=== PATIENT | female | born 1980 | race Hispanic/Latino ===

== ENCOUNTER 2018-08-23 19:39 | Emergency (ER) | payer SELFPAY ==
[~2018-08-23] VITALS: Ht 162.6 cm; Wt 94.3 kg
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
[2018-08-23] MEDS ORDERED: FAMOTIDINE 20 MG/2 ML VIAL IV NR (20:19)
[2018-08-23] MEDS ORDERED: ONDANSETRON HCL INJ 2MG/ML 2ML 2 MG/ML VIAL IV STA (20:19)
[2018-08-23] MEDS ORDERED: CEFTRIAXONE SOD 1 GM/NS 50 ML 50 ML IV NR (21:15)
--- NOTE | 2018-08-23 21:33 | Diagnostic Imaging Report ---
CT Abdomen And Pelvis with Intravenous Contrast INDICATION: Abdominal pain, nausea, vomiting, suprapubic pain ^[id number] ^[id number]; history of tubal ligation, appendectomy, cholecystectomy TECHNIQUE: Thin collimation axial images obtained from the diaphragm to the level of the pubic symphysis following the uneventful administration of 100 cc of low osmolar, nonionic intravenous contrast. Dose reduction techniques used: Automated exposure control, adjustment of the mAs and/or kVp according to patient size, standardized low-dose protocol, and/or iterative reconstruction technique. RADIATION DOSE: Total DLP: 814.3 mGy*cm Estimated effective dose: (DLP x 0.015 x size factor) mSv CTDIvol has been reviewed. It is below the limits set by the Radiation Protocol Committee (RPC). COMPARISON: None. ABDOMEN FINDINGS: Lung Bases: Clear. The visualized portions of the mediastinum are normal. Liver: Decreased attenuation. Right lobe measures 17 cm in length. Multiple low attenuating lesions throughout the parenchyma, some of which are lobulated, measuring up to 2 cm. Enhancing lesion in segment 6 measures 1.6 x 1.7 cm. Gallbladder: Absent. No biliary ductal dilatation. Pancreas: Normal attenuation without mass or ductal dilatation. Spleen: Normal in size. No evidence of mass.. Adrenal Glands: No evidence for mass. Kidneys: Right: Normal enhancement. No soft tissue mass. No hydronephrosis. Left: Normal enhancement. No soft tissue mass. No hydronephrosis. Lymph Nodes: No enlarged abdominal or retroperitoneal lymph nodes.. Aorta: Normal in diameter PELVIS FINDINGS: Bowel: Stomach: Normal in caliber with normal wall thickness. Small Bowel: Normal in caliber with normal wall thickness. Large Bowel: Normal in caliber with normal wall thickness. Appendix: Absent. Bladder: Normal. No ureteral dilatation. The uterus is present and normal in morphology. There is a corpus luteum in the left ovary. Peritoneum/retroperitoneum: No free fluid or fluid collection. Bones: Posterior pedicle screw and interbody fusion of L5-S1. The hardware is intact without surrounding lucency to suggest loosening. No listhesis small bone island in the roof of the right acetabulum. Soft tissues: Unremarkable. IMPRESSION: 1. No evidence for bowel obstruction or inflammation. Appendectomy. 2. Steatosis and hepatomegaly. Multiple hepatic lesions may represent cysts and enhancing renal lesions such as hemangiomata. This could be confirmed with CT or MRI dedicated to the liver on an outpatient basis. 3. Corpus luteum in the left ovary. No other pelvic findings to explain suprapubic pain. Signed by: Dr. Estela Munguia MD on 08/23/2018 9:29 PM
[2018-08-23 23:05] VITALS: BP 136/95
== END 2018-08-23 22:29 | disposition home or self-care (01) ==
LOC: FSED 19:39
DX: R10.11 Right upper quadrant pain (principal); R10.84 Generalized abdominal pain; R11.2 Nausea with vomiting, unspecified; N30.90 Cystitis, unspecified without hematuria; N80.9 Endometriosis, unspecified
CPT/HCPCS: 36415; 74177; 80076; 81003; 83690; 85025; 87086; 87186; 99284; J2405